=== PATIENT | male | born 1955 | race Caucasian/White ===

== ENCOUNTER 2022-12-12 09:23 | Inpatient (IN) | payer MEDICARE, MEDICAID, SELFPAY ==
--- NOTE | ~2022-12-12 | CT_ITS ---
EXAMINATION: CT HEAD WITHOUT CONTRAST CLINICAL INFORMATION: New seizure COMPARISON: None available. TECHNIQUE: Contiguous axial imaging was performed from the skull base to vertex without intravenous administration of contrast. This CT examination was performed using dose optimization techniques as appropriate, variously including the following: *Automated exposure control *Adjustment of mA and/or kV according to patient size (this includes techniques or standardized protocols for targeted exams where dose is matched to indication/reason for exam; i.e. extremities or head) *Use of iterative reconstruction technique DLP: 656 mGy-cm FINDINGS: There is no evidence of acute intracranial hemorrhage or territorial infarction. Chronic white matter small vessel ischemic changes. Cerebral atrophy with commensurate ventricular changes. No abnormal mass effect or midline shift is seen. Jenkins to white matter differentiation is well preserved. No extra-axial fluid collections are identified. There is no abnormal attenuation within the brain parenchyma. The osseous structures and soft tissues are normal. The mastoid air cells and visualized portions of the paranasal sinuses are well aerated. CT/CT head/brain wo IV con IMPRESSION: 1. No acute intracranial pathology. 2. Chronic white matter small vessel ischemic changes.
--- NOTE | ~2022-12-12 | XR_ITS ---
EXAMINATION: XR CHEST CLINICAL INFORMATION: Weakness. COMPARISON: 12/12/2022 chest radiograph. TECHNIQUE: Frontal view of the chest was obtained. FINDINGS: No significant abnormality is noted involving the heart, lungs, mediastinum, bony thorax or soft tissues. XR/XR chest 1V IMPRESSION: No acute cardiopulmonary process.
[2022-12-12 09:32] VITALS: BP 116/60; BP 121/65; PULSE 102; PULSE 90; RESP 18; TEMP 35.4; O2SAT 98; BMI 25.0
--- NOTE | 2022-12-12 09:38 | ECG_ITS ---
Test Reason : weakness Blood Pressure : / mmHG Vent. Rate : 088 BPM Atrial Rate : 088 BPM P-R Int : 130 ms QRS Dur : 074 ms QT Int : 406 ms P-R-T Axes : 000 079 056 degrees QTc Int : 491 ms Poor data quality Sinus rhythm with Premature supraventricular complexes Otherwise normal ECG No previous ECGs available Referred By: Aislinn Pires Electronically Signed By:NILO WALL MD
--- NOTE | 2022-12-12 09:40 | ED_ITS ---
HPI - Seizure General Chief Complaint: Seizure Stated Complaint: multi sz this am,post ictal @ this time,no h/o sz Source: patient and EMS Mode of arrival: EMS Limitations: altered mental status History of Present Illness HPI Narrative: 67 yo male with history of dementia, schizophrenia, DM, HTN coming from a SNF w ith concern for seizure activity. Per report from EMS nursing noted patient today to have generalized shaking, incontinence of urine x 4 episodes with AMS after this. There was no reports of injury or trauma. Patient received 4mg versed [employer] by EMS NO known history of seizures Related Data Home Medications Medication Instructions Recorded Confirmed acetaminophen 325 mg tablet 650 mg PO Q6H PRN Fever Or Pain 12/12/22 12/12/22 acetaminophen 650 mg rectal 650 mg NE Q6H PRN Fever Or Pain 12/12/22 12/12/22 suppository aspirin 81 mg chewable tablet 81 mg PO DAILY 12/12/22 12/12/22 bisacodyl 10 mg rectal suppository 10 mg NE DAILY PRN Constipation 12/12/22 12/12/22 cholecalciferol (vitamin D3) 1,250 1,250 mcg PO QMONTH 12/12/22 12/12/22 mcg (50,000 unit) capsule lisinopril 5 mg tablet 5 mg PO DAILY 12/12/22 12/12/22 magnesium hydroxide 400 mg/5 mL 30 ml PO DAILY PRN IF NO BM IN 3 12/12/22 12/12/22 oral suspension (Milk of Magnesia) DAYS melatonin 3 mg tablet 6 mg PO BEDTIME PRN Sleep 12/12/22 12/12/22 metformin 500 mg tablet,extended 500 mg PO DAILY 12/12/22 12/12/22 release 24 hr olanzapine 5 mg tablet 5 mg PO BID 12/12/22 12/12/22 quetiapine 25 mg tablet 25 mg PO BEDTIME 12/12/22 12/12/22 simethicone 80 mg chewable tablet 80 mg PO Q8H PRN Gastric Reflux 12/12/22 12/12/22 sodium phosphates 19 gram-7 118 ml NE DAILY PRN Constipation 12/12/22 12/12/22 gram/118 mL enema (Fleet Enema) Allergies Allergy/AdvReac Type Severity Reaction Status Date / Time Unable to Assess Allergy Verified 12/12/22 09:37 Review of Systems Review of Systems: Yes Unobtainable due to mental status [facility] Past Medical History Attestation statement: The following information was validated with the patient. Source: old records reviewed and nursing notes reviewed Social History Social History Advance Directives: No Physical Exam Vital Signs: Vital Signs: Last Vital Signs Temp 96.2 F L 12/12/22 12:02 Pulse 74 12/12/22 12:02 Resp 15 12/12/22 12:02 BP 120/61 12/12/22 12:02 Pulse Ox 100 12/12/22 12:02 O2 Del Method Room Air 12/12/22 12:02 BMI result Body Mass Index 25.0 Const: Limitations: altered mental status HEENT: Head: Yes normal to inspection, No Davis's sign and No raccoon eyes Ears: TM's normal bilaterally Mouth: Normal oral and palatal mucosa present Eyes: General: appearance normal, both eyes and all related structures Pupils: Equal, round and reactive pupils present Neck: Neck: Yes normal visual inspection, Yes full ROM, Yes no lymphadenopathy and Yes no meningeal signs Chest: Chest palpation & inspection: normal inspection of the chest Resp: Effort & Inspection: normal respiratory effort Cardio: Peripheral pulses: Peripheral pulses 2+ throughout GI: Inspection: Yes normal to inspection Palpation (GI): Soft to palpation and nontender Back/Spine/Pelvis: Thoracic/Lumbar Spine: thoracic and lumbar spine normal to inspection Skin: General skin exam: no rashes or lesions noted Neuro: Other: Eyes closed-opens eyes to verbal, does not follow additional commands General: no meningeal signs Cranial nerves: Yes Equal, round and reactive pupils present Extrem: General: Yes normal to inspection, Yes no pedal edema and Yes no calf tenderness Course Course Course Narrative: 1025-Elevated lactic acid. This is from seizure and not from infection. fluids infusing. Patient will be loaded with Keppra 1 g Reevaluation(s) Reevaluation #1: I reviewed the patient's labs and imaging. Patient will be admitted due to new onset of seizures. I spoke to the hospitalist who accepted the admission Medications Administered Generic Name Dose Route Start Last Admin Trade Name Freq PRN Reason Stop Dose Admin Enoxaparin Sodium 40 mg 12/12/22 14:00 12/12/22 15:31 Enoxaparin Sodium 40 Mg/0.4 Ml Syringe SUBCUT 40 mg Q24H AVA Administration Discontinued Medications Generic Name Dose Route Start Last Admin Trade Name Freq PRN Reason Stop Dose Admin Sodium Chloride 1,000 mls @ 999 mls/hr 12/12/22 09:40 12/12/22 11:58 Ns IV 12/12/22 10:40 Infused .Q1H1M STA Infusion Levetiracetam 1,000 mg in 100 mls @ 400 mls/hr 12/12/22 10:55 12/12/22 11:32 Keppra IV 12/12/22 11:09 Infused ONCE ONE Infusion Medical Decision Making Medical Decision Making MDM Narrative: 67 yo male with history of dementia, schizophrenia, HTN, DM here with concern for seizure activity seen by LTC staff. Received Versed by EMS [employer] On arrival patient rouses to verbal but follows no commands, unsure of baseline. NO seizure activity noted on arrival. Will need labs, CXR, EKG, UA, COVID screen, CT head. Patient with core temp 95.6, hr 102-will give IVF, place patient on blanket warmer. This may be from exposure and not from infection Differential Diagnosis Differential Diagnoses: The differential diagnosis associated with the presentation includes New onset seizure, intracranial hemorrhage, metabolic encephalopathy secondary to underlying infection Doubt meningitis, encephalitis as patient has no fever, no leukocytosis, no meningeal signs Admission/Observation Consideration of admission/observation: Escalation of care including admission/observation considered New onset seizure Consult Healthcare Provider Management of the patient was discussed with: Hospitalist Spoke to Dr Rodarte who accepted admission m Lab Data [facility] Lab Attestation statement: I reviewed the patient's lab results. 12/12/22 09:51 12/12/22 09:51 Labs: Lab Results 12/12/22 12/12/22 12/12/22 Range/Units 09:51 09:51 09:51 WBC 4.4 L (4.8-10.8) X10*3/uL RBC 3.85 L (4.60-5.80) X10*6/uL Hgb 12.1 L (14.0-18.0) g/dl Hct 36.5 L (42.0-52.0) % MCV 94.8 (80.0-98.0) fL MCH 31.4 (27.0-33.0) pg MCHC 33.2 (31.0-36.0) g/dl RDW 13.4 (11.0-16.0) % Plt Count 357 (160-400) X10*3/uL MPV 9.1 L (9.4-12.4) fL Immature Gran % (Auto) 0.2 (0.0-0.4) % Neut % (Auto) 57.8 (45-73) % Lymph % (Auto) 32.5 (20-40) % [place] % (Auto) 6.1 (2-11) % Eos % (Auto) 2.3 (0-4) % Baso % (Auto) 1.1 (0-2) % Lymph # (Auto) 1.4 (1.2-4.9) X10*3/uL [place] # (Auto) 0.3 (0.1-1.2) X10*3/uL Eos # (Auto) 0.1 (0.0-0.4) X10*3/uL Baso # (Auto) 0.1 (0.0-0.2) X10*3/uL Abs Immat Gran (auto) 0.01 (0.00-0.03) X10*3/uL Absolute Neuts (auto) 2.5 (2.0-8.3) x10*3/uL Absolute Nucleated RBC 0.000 (0.0-0.012) X10*3/uL Nucleated RBC % (auto) 0.0 (0.0-0.2) /100WBC PT (10.0-13.1) SEC INR (0.9-1.1) Sodium 140 (135-145) mmol/L Potassium 4.6 (3.3-5.1) mmol/L Chloride 106 (96-108) mmol/L Carbon Dioxide 24 (22-29) mmol/L Anion Gap 15 (12-20) BUN 11 (9-16) mg/dL Creatinine 0.77 (0.5-1.4) mg/dL Estim Creat Clear Calc 80.9 Estimated GFR > 60 Random Glucose 154 H (60-115) mg/dL Lactic Acid (0.5-2.0) mmol/L Calcium 9.0 (8.4-10.2) mg/dL Magnesium 1.9 (1.6-2.6) mg/dL Total Bilirubin 0.4 (0.0-1.0) mg/dL Direct Bilirubin 0.1 (0.0-0.5) mg/dL AST 17 (5-37) U/L ALT 11 (0-40) U/L Alkaline Phosphatase 70 (39-117) U/L Total Creatine Kinase 140 (38-174) U/L Troponin I High Sens (<3.5-35.0) ng/L Total Protein 7.0 (6.5-8.0) g/dL Albumin 3.7 (3.5-5.0) g/dL Urine Color Urine Appearance Urine pH (5.0-9.0) Ur Specific [place] (1.005-1.025) Urine Protein (Neg-Trace) mg/dL Urine Glucose (UA) (Negative) mg/dL Urine Ketones (Negative) mg/dL Urine Blood (Negative) Urine Nitrite (Negative) Ur Leukocyte Esterase (Negative) Urine Opiates Screen (Not Detect) Urine Fentanyl Screen (Not Detect) Ur Barbiturates Screen (Not Detect) Ur Phencyclidine Scrn (Not Detect) Ur Amphetamines Screen (Not Detect) U Benzodiazepines Scrn (Not Detect) Urine Cocaine Screen (Not Detect) U Marijuana (THC) Screen (Not Detect) Ethyl Alcohol mg/dL COVID-19 (REGINALDO) Negative (Negative) COVID-19 Clin Com See Note 12/12/22 12/12/22 12/12/22 Range/Units 09:51 09:51 09:51 WBC (4.8-10.8) X10*3/uL RBC (4.60-5.80) X10*6/uL Hgb (14.0-18.0) g/dl Hct (42.0-52.0) % MCV (80.0-98.0) fL MCH (27.0-33.0) pg MCHC (31.0-36.0) g/dl RDW (11.0-16.0) % Plt Count (160-400) X10*3/uL MPV (9.4-12.4) fL Immature Gran % (Auto) (0.0-0.4) % Neut % (Auto) (45-73) % Lymph % (Auto) (20-40) % [place] % (Auto) (2-11) % Eos % (Auto) (0-4) % Baso % (Auto) (0-2) % Lymph # (Auto) (1.2-4.9) X10*3/uL [place] # (Auto) (0.1-1.2) X10*3/uL Eos # (Auto) (0.0-0.4) X10*3/uL Baso # (Auto) (0.0-0.2) X10*3/uL Abs Immat Gran (auto) (0.00-0.03) X10*3/uL Absolute Neuts (auto) (2.0-8.3) x10*3/uL Absolute Nucleated RBC (0.0-0.012) X10*3/uL Nucleated RBC % (auto) (0.0-0.2) /100WBC PT 12.0 (10.0-13.1) SEC INR 1.0 (0.9-1.1) Sodium (135-145) mmol/L Potassium (3.3-5.1) mmol/L Chloride (96-108) mmol/L Carbon Dioxide (22-29) mmol/L Anion Gap (12-20) BUN (9-16) mg/dL Creatinine (0.5-1.4) mg/dL Estim Creat Clear Calc Estimated GFR Random Glucose (60-115) mg/dL Lactic Acid 4.2 H* (0.5-2.0) mmol/L Calcium (8.4-10.2) mg/dL Magnesium (1.6-2.6) mg/dL Total Bilirubin (0.0-1.0) mg/dL Direct Bilirubin (0.0-0.5) mg/dL AST (5-37) U/L ALT (0-40) U/L Alkaline Phosphatase (39-117) U/L Total Creatine Kinase (38-174) U/L Troponin I High Sens 3.4 (<3.5-35.0) ng/L Total Protein (6.5-8.0) g/dL Albumin (3.5-5.0) g/dL Urine Color Urine Appearance Urine pH (5.0-9.0) Ur Specific [place] (1.005-1.025) Urine Protein (Neg-Trace) mg/dL Urine Glucose (UA) (Negative) mg/dL Urine Ketones (Negative) mg/dL Urine Blood (Negative) Urine Nitrite (Negative) Ur Leukocyte Esterase (Negative) Urine Opiates Screen (Not Detect) Urine Fentanyl Screen (Not Detect) Ur Barbiturates Screen (Not Detect) Ur Phencyclidine Scrn (Not Detect) Ur Amphetamines Screen (Not Detect) U Benzodiazepines Scrn (Not Detect) Urine Cocaine Screen (Not Detect) U Marijuana (THC) Screen (Not Detect) Ethyl Alcohol mg/dL COVID-19 (REGINALDO) (Negative) COVID-19 Clin Com 12/12/22 12/12/22 12/12/22 Range/Units 09:51 11:21 11:21 WBC (4.8-10.8) X10*3/uL RBC (4.60-5.80) X10*6/uL Hgb (14.0-18.0) g/dl Hct (42.0-52.0) % MCV (80.0-98.0) fL MCH (27.0-33.0) pg MCHC (31.0-36.0) g/dl RDW (11.0-16.0) % Plt Count (160-400) X10*3/uL MPV (9.4-12.4) fL Immature Gran % (Auto) (0.0-0.4) % Neut % (Auto) (45-73) % Lymph % (Auto) (20-40) % [place] % (Auto) (2-11) % Eos % (Auto) (0-4) % Baso % (Auto) (0-2) % Lymph # (Auto) (1.2-4.9) X10*3/uL [place] # (Auto) (0.1-1.2) X10*3/uL Eos # (Auto) (0.0-0.4) X10*3/uL Baso # (Auto) (0.0-0.2) X10*3/uL Abs Immat Gran (auto) (0.00-0.03) X10*3/uL Absolute Neuts (auto) (2.0-8.3) x10*3/uL Absolute Nucleated RBC (0.0-0.012) X10*3/uL Nucleated RBC % (auto) (0.0-0.2) /100WBC PT (10.0-13.1) SEC INR (0.9-1.1) Sodium (135-145) mmol/L Potassium (3.3-5.1) mmol/L Chloride (96-108) mmol/L Carbon Dioxide (22-29) mmol/L Anion Gap (12-20) BUN (9-16) mg/dL Creatinine (0.5-1.4) mg/dL Estim Creat Clear Calc Estimated GFR Random Glucose (60-115) mg/dL Lactic Acid (0.5-2.0) mmol/L Calcium (8.4-10.2) mg/dL Magnesium (1.6-2.6) mg/dL Total Bilirubin (0.0-1.0) mg/dL Direct Bilirubin (0.0-0.5) mg/dL AST (5-37) U/L ALT (0-40) U/L Alkaline Phosphatase (39-117) U/L Total Creatine Kinase (38-174) U/L Troponin I High Sens (<3.5-35.0) ng/L Total Protein (6.5-8.0) g/dL Albumin (3.5-5.0) g/dL Urine Color Yellow Urine Appearance Clear Urine pH 6.5 (5.0-9.0) Ur Specific [place] 1.015 (1.005-1.025) Urine Protein Negative (Neg-Trace) mg/dL Urine Glucose (UA) Negative (Negative) mg/dL Urine Ketones Negative (Negative) mg/dL Urine Blood Negative (Negative) Urine Nitrite Negative (Negative) Ur Leukocyte Esterase Negative (Negative) Urine Opiates Screen Not Detected (Not Detect) Urine Fentanyl Screen Not Detected (Not Detect) Ur Barbiturates Screen Not Detected (Not Detect) Ur Phencyclidine Scrn Not Detected (Not Detect) Ur Amphetamines Screen Not Detected (Not Detect) U Benzodiazepines Scrn POSITIVE H (Not Detect) Urine Cocaine Screen Not Detected (Not Detect) U Marijuana (THC) Screen Not Detected (Not Detect) Ethyl Alcohol < 10 mg/dL COVID-19 (REGINALDO) (Negative) COVID-19 Clin Com Independent Interpretation I performed an independent interpretation of an: EKG, Plain X-Ray and CT Scan Interpretation: I independently reviewed the x-ray and CT head and agree with radiologist's report I independently reviewed the EKG which is unable to be interpreted due to artifact which is present Radiology Impression Discussion of test interpretation with radiology: I have reviewed the radiologist's reading. Radiologist Impression: [address] [address] XRay Report Signed Patient: Juan Carlos Cabrera MR#: [id number] : 1955 Acct:[id number] Age/Sex: 67 / M ADM Date: 12/12/22 Loc: .ED Attending Dr: Ordering Physician: Aislinn Valdovinos NP Date of Service: 12/12/22 Procedure(s): XR chest 1V Accession Number(s): [id number] cc: Aislinn Valdovinos NP~ EXAMINATION: XR CHEST CLINICAL INFORMATION: Weakness. COMPARISON: 12/12/2022 chest radiograph. TECHNIQUE: Frontal view of the chest was obtained. FINDINGS: No significant abnormality is noted involving the heart, lungs, mediastinum, bony thorax or soft tissues. XR/XR chest 1V IMPRESSION: No acute cardiopulmonary process. ? Launch?Image [address] [address] [address] Scan Report Signed Patient: Juan Carlos Cabrera MR#: [id number] : 1955 Acct:[id number] Age/Sex: 67 / M ADM Date: 12/12/22 Loc: .ED Attending Dr: Ordering Physician: Aislinn Valdovinos NP Date of Service: 12/12/22 Procedure(s): CT head/brain wo IV con Accession Number(s): [id number] cc: Aislinn Valdovinos NP~ EXAMINATION: CT HEAD WITHOUT CONTRAST CLINICAL INFORMATION: New seizure? COMPARISON: None available. TECHNIQUE: Contiguous axial imaging was performed from the skull base to vertex without intravenous administration of contrast. This CT examination was performed using dose optimization techniques as appropriate, variously including the following: *Automated exposure control *Adjustment of mA and/or kV according to patient size (this includes techniques or standardized protocols for targeted exams where dose is matched to indication/reason for exam; i.e. extremities or head) *Use of iterative reconstruction technique DLP: 656 mGy-cm FINDINGS: There is no evidence of acute intracranial hemorrhage or territorial infarction. Chronic white matter small vessel ischemic changes. Cerebral atrophy with commensurate ventricular changes. No abnormal mass effect or midline shift is seen. Jenkins to white matter differentiation is well preserved. No extra-axial fluid collections are identified. There is no abnormal attenuation within the brain parenchyma. The osseous structures and soft tissues are normal. The mastoid air cells and visualized portions of the paranasal sinuses are well aerated. ? CT/CT head/brain wo IV con IMPRESSION: 1.? No acute intracranial pathology. 2.? Chronic white matter small vessel ischemic changes. ? Independent Historian Clinical information obtained from an independent historian. History obtained from or confirmed by: EMS Critical Care Time Critical Care Time Critical Care Time: Yes Total Critical Care Time: 60 Attestation: Patient with hypothermia, altered mental status requiring immediate intervention with warming blankets and neurological assessment. Patient with new onset seizures requiring admission to the hospital and discussion with hospitalist Discharge Plan Discharge Clinical Impression: Epileptic seizure Patient Disposition: Admitted As Inpatient
[2022-12-12] MEDS: 0.9 % Sodium Chloride 1,000 ML 999 ML IV (10:00)
[2022-12-12 10:03] LABS: MANUAL DIFF FLAG NO
[2022-12-12 10:07] LABS: Basophils Absolute Auto 0.1 X10*3/uL (0.0-0.2); Basophils Percent Auto 1.1 % (0-2); Eosinophils Absolute Auto 0.1 X10*3/uL (0.0-0.4); Eosinophils Percent Auto 2.3 % (0-4); Hematocrit 36.5 % (42.0-52.0); Hemoglobin 12.1 g/dl (14.0-18.0); Imm Gran Abs Auto 0.01 X10*3/uL (0.00-0.03); Imm Gran Pct Auto 0.2 % (0.0-0.4); Lymphocytes Absolute Auto 1.4 X10*3/uL (1.2-4.9); Lymphocytes Percent Auto 32.5 % (20-40); Mean Corpuscular HGB Conc 33.2 g/dl (31.0-36.0); Mean Corpuscular Hemoglobin 31.4 pg (27.0-33.0); Mean Corpuscular Volume 94.8 fL (80.0-98.0); Mean Platelet Volume 9.1 fL (9.4-12.4); Monocytes Absolute Auto 0.3 X10*3/uL (0.1-1.2); Monocytes Percent Auto 6.1 % (2-11); Neutrophils Absolute Auto 2.5 x10*3/uL (2.0-8.3); Neutrophils Percent Auto 57.8 % (45-73); Platelet Count 357 X10*3/uL (160-400); Red Blood Count 3.85 X10*6/uL (4.60-5.80); Red Cell Distribution Width 13.4 % (11.0-16.0); White Blood Count 4.4 X10*3/uL (4.8-10.8)
[2022-12-12 10:22] LABS: Alanine Aminotransferase 11 U/L (0-40); Albumin Level 3.7 g/dL (3.5-5.0); Alkaline Phosphatase 70 U/L (39-117); Anion Gap 15 (12-20); Aspartate Amino Transferase 17 U/L (5-37); Bilirubin Direct 0.1 mg/dL (0.0-0.5); Bilirubin Total 0.4 mg/dL (0.0-1.0); Blood Urea Nitrogen 11 mg/dL (9-16); Carbon Dioxide 24 mmol/L (22-29); Chloride 106 mmol/L (96-108); Creatinine Clr Calc Pharmacy 80.9; Estimated Glomerular Filt Rate > 60; Ethanol < 10 mg/dL; Glucose Random 154 mg/dL (60-115); Magnesium 1.9 mg/dL (1.6-2.6); Potassium 4.6 mmol/L (3.3-5.1); Sodium 140 mmol/L (135-145)
[2022-12-12 10:26] LABS: Lactic Acid 4.2 mmol/L (0.5-2.0)
[2022-12-12 10:29] LABS: Troponin-I High Sensitivity 3.4 ng/L (<3.5-35.0)
[2022-12-12 10:34] LABS: COVID-19 Test Negative (Negative); IDNOW Serial# BCCEAD1C
--- NOTE | 2022-12-12 11:02 | PHA.MEDREC ---
Pharmacy Consult ? [facility]
[2022-12-12] MEDS: levETIRAcetam in NaCl (iso-os) 1,000 MG/100 ML PIGGYBACK 400 MG IV (11:15)
[2022-12-12 11:35] LABS: Appearance Urine Clear; Color Urine Yellow; Glucose Urine UA Negative (Negative); Leukocyte Esterase Urine Negative (Negative); Nitrite Urine Negative (Negative); PH 6.5 (5.0-9.0); Specific Gravity - Urine 1.015 (1.005-1.025); Urine Blood Negative (Negative); Urine Ketones Negative (Negative); Urine Protein Negative (Neg-Trace)
[2022-12-12 11:40] LABS: Amphetamine Screen Urine Not Detected (Not Detect); Barbiturates, Urine Not Detected (Not Detect); Benzodiazepines Screen Urine POSITIVE (Not Detect); Cannabinoid Screen Urine Not Detected (Not Detect); Cocaine Screen Urine Not Detected (Not Detect); Fentanyl, urine Not Detected (Not Detect); Opiate Screen Urine Not Detected (Not Detect); Phencyclidine Screen Urine Not Detected (Not Detect)
[2022-12-12 12:01] LABS: Reflex Lactate? Lactic Acid Added
[2022-12-12 12:02] VITALS: BP 120/61; PULSE 74; RESP 15; TEMP 35.7; O2SAT 100
--- NOTE | 2022-12-12 12:37 | P.HPHOSP_ITS ---
History of Present Illness Date of Service: 12/12/22 Attending physician on admission: [facility] Chief Complaint: New onset seizure Pt is a 67-year-old male with a PMH significant for?unspecified dementia, schizophrenia, HTN, olz-qquweub-gtgcxsvce diabetes type 2, and BPH who presents to the ED from SNF for evaluation of new onset seizure. Patient is a resident of [facility]. Patient was being attended to by a LOAF COUNTER when he started shaking, became unresponsive, and was incontinent of urine. LOAF COUNTER lowered him to the floor and noted him to be altered when he awoke. Patient does not have a known history of seizures. Has baseline dementia but ambulates on his own and capable of following basic commands at baseline. Patient received 4 mg Versed by EMS. In the ED patient was hypothermic at 95.8 and tachypnic up to 102. Patient was placed in a warming blanket and given IVF. Labs were significant for WBC 4.4, H&H 12.1/36.5, lactic acid 4.2. Electrolytes normal. Renal function baseline. Hepatic function baseline. UA negative for UTI. CXR negative. CT of head negative for acute intracranial pathology but showed chronic white matter small- vessel ischemic changes. EKG demonstrated sinus rhythm with PVCs and no evidence of ST elevations or depressions. Pt was treated with IVF and loaded with Keppra. Pt will be admitted to the hospital under observation on telemetry for further evaluation and treatment of new onset seizure. Review of Systems Review of Systems: Not able to obtain due to patient's mentation PMFSH Social History Advance Directives: No Meds Allergies Allergy/AdvReac Type Severity Reaction Status Date / Time Unable to Assess Allergy Verified 12/12/22 09:37 Active Medications: Current Medications Pharmacy Consult (Consult Rx Perform Med Rec) 1 each MISCELLANE ONCE PRN PRN Reason: Consult order Home Medications Medication Instructions Recorded Confirmed Last Taken Type acetaminophen 325 mg tablet 650 mg PO Q6H PRN Fever Or Pain 12/12/22 12/12/22 Unknown History acetaminophen 650 mg rectal 650 mg MS Q6H PRN Fever Or Pain 12/12/22 12/12/22 Unknown History suppository aspirin 81 mg chewable tablet 81 mg PO DAILY 12/12/22 12/12/22 Unknown History bisacodyl 10 mg rectal suppository 10 mg MS DAILY PRN Constipation 12/12/22 12/12/22 Unknown History cholecalciferol (vitamin D3) 1,250 1,250 mcg PO QMONTH 12/12/22 12/12/22 11/27/22 History mcg (50,000 unit) capsule lisinopril 5 mg tablet 5 mg PO DAILY 12/12/22 12/12/22 Unknown History magnesium hydroxide 400 mg/5 mL 30 ml PO DAILY PRN IF NO BM IN 3 12/12/22 12/12/22 Unknown History oral suspension (Milk of Magnesia) DAYS melatonin 3 mg tablet 6 mg PO BEDTIME PRN Sleep 12/12/22 12/12/22 Unknown History metformin 500 mg tablet,extended 500 mg PO DAILY 12/12/22 12/12/22 Unknown History release 24 hr olanzapine 5 mg tablet 5 mg PO BID 12/12/22 12/12/22 Unknown History quetiapine 25 mg tablet 25 mg PO BEDTIME 12/12/22 12/12/22 Unknown History simethicone 80 mg chewable tablet 80 mg PO Q8H PRN Gastric Reflux 12/12/22 12/12/22 Unknown History sodium phosphates 19 gram-7 118 ml MS DAILY PRN Constipation 12/12/22 12/12/22 Unknown History gram/118 mL enema (Fleet Enema) Physical Exam Vital Signs and Narrative: Vital Signs: Last Vital Signs Temp 96.2 F L 12/12/22 12:02 Pulse 74 12/12/22 12:02 Resp 15 12/12/22 12:02 BP 120/61 12/12/22 12:02 Pulse Ox 100 12/12/22 12:02 O2 Del Method Room Air 12/12/22 12:02 BMI result Body Mass Index 25.0 Constitutional: Somnolent, arousable to verbal stimuli, in no acute distress. Mental Status: Confused, not oriented to person, place, time, or situation. Not responding to commands or answering questions appropriately Eyes: Pupils are equal, round, and reactive to light. Ear, Nose, and Throat: Oropharynx clear, mucous membranes moist. Ears and nose without deformities. Trachea midline. Respiratory: Clear to auscultation bilaterally. No wheezing, rales, or rhonchi. Cardiovascular: S1, S2 regular. No murmurs, rubs, or gallops. Gastrointestinal: Abdomen soft, non-tender, non-distended. Normal bowel sounds. Neurologic: Patient not following commands. Moves all extremities spontaneously. Skin: No rashes or lesions noted. Musculoskeletal: No cyanosis or clubbing. Extremities: No edema. Results Labs 12/12/22 09:51 12/12/22 09:51 Labs: Laboratory Results - last 24 hr 12/12/22 12/12/22 12/12/22 09:51 09:51 09:51 MCV 94.8 MCH 31.4 MCHC 33.2 RDW 13.4 Plt Count 357 MPV 9.1 L Immature Gran % (Auto) 0.2 Neut % (Auto) 57.8 Lymph % (Auto) 32.5 [place] % (Auto) 6.1 Eos % (Auto) 2.3 Baso % (Auto) 1.1 Lymph # (Auto) 1.4 [place] # (Auto) 0.3 Eos # (Auto) 0.1 Baso # (Auto) 0.1 Abs Immat Gran (auto) 0.01 Absolute Neuts (auto) 2.5 Absolute Nucleated RBC 0.000 Nucleated RBC % (auto) 0.0 PT INR Anion Gap 15 Estim Creat Clear Calc 80.9 Estimated GFR > 60 Random Glucose 154 H Lactic Acid Calcium 9.0 Magnesium 1.9 Total Bilirubin 0.4 Direct Bilirubin 0.1 AST 17 ALT 11 Alkaline Phosphatase 70 Total Creatine Kinase 140 Troponin I High Sens Total Protein 7.0 Albumin 3.7 Urine Color Urine Appearance Urine pH Ur Specific [place] Urine Protein Urine Glucose (UA) Urine Ketones Urine Blood Urine Nitrite Ur Leukocyte Esterase Urine Opiates Screen Urine Fentanyl Screen Ur Barbiturates Screen Ur Phencyclidine Scrn Ur Amphetamines Screen U Benzodiazepines Scrn Urine Cocaine Screen U Marijuana (THC) Screen Ethyl Alcohol COVID-19 (REGINALDO) Negative COVID-19 Clin Com See Note 12/12/22 12/12/22 12/12/22 09:51 09:51 09:51 MCV MCH MCHC RDW Plt Count MPV Immature Gran % (Auto) Neut % (Auto) Lymph % (Auto) [place] % (Auto) Eos % (Auto) Baso % (Auto) Lymph # (Auto) [place] # (Auto) Eos # (Auto) Baso # (Auto) Abs Immat Gran (auto) Absolute Neuts (auto) Absolute Nucleated RBC Nucleated RBC % (auto) PT 12.0 INR 1.0 Anion Gap Estim Creat Clear Calc Estimated GFR Random Glucose Lactic Acid 4.2 H* Calcium Magnesium Total Bilirubin Direct Bilirubin AST ALT Alkaline Phosphatase Total Creatine Kinase Troponin I High Sens 3.4 Total Protein Albumin Urine Color Urine Appearance Urine pH Ur Specific [place] Urine Protein Urine Glucose (UA) Urine Ketones Urine Blood Urine Nitrite Ur Leukocyte Esterase Urine Opiates Screen Urine Fentanyl Screen Ur Barbiturates Screen Ur Phencyclidine Scrn Ur Amphetamines Screen U Benzodiazepines Scrn Urine Cocaine Screen U Marijuana (THC) Screen Ethyl Alcohol COVID-19 (REGINALDO) COVID-19 Clin Com 12/12/22 12/12/22 12/12/22 09:51 11:21 11:21 MCV MCH MCHC RDW Plt Count MPV Immature Gran % (Auto) Neut % (Auto) Lymph % (Auto) [place] % (Auto) Eos % (Auto) Baso % (Auto) Lymph # (Auto) [place] # (Auto) Eos # (Auto) Baso # (Auto) Abs Immat Gran (auto) Absolute Neuts (auto) Absolute Nucleated RBC Nucleated RBC % (auto) PT INR Anion Gap Estim Creat Clear Calc Estimated GFR Random Glucose Lactic Acid Calcium Magnesium Total Bilirubin Direct Bilirubin AST ALT Alkaline Phosphatase Total Creatine Kinase Troponin I High Sens Total Protein Albumin Urine Color Yellow Urine Appearance Clear Urine pH 6.5 Ur Specific [place] 1.015 Urine Protein Negative Urine Glucose (UA) Negative Urine Ketones Negative Urine Blood Negative Urine Nitrite Negative Ur Leukocyte Esterase Negative Urine Opiates Screen Not Detected Urine Fentanyl Screen Not Detected Ur Barbiturates Screen Not Detected Ur Phencyclidine Scrn Not Detected Ur Amphetamines Screen Not Detected U Benzodiazepines Scrn POSITIVE H Urine Cocaine Screen Not Detected U Marijuana (THC) Screen Not Detected Ethyl Alcohol < 10 COVID-19 (REGINALDO) COVID-19 Clin Com Imaging Radiologist's Impressions: Impressions Chest X-Ray 12/12/22 11:09 IMPRESSION: No acute cardiopulmonary process. Head CT 12/12/22 11:16 IMPRESSION: 1. No acute intracranial pathology. 2. Chronic white matter small vessel ischemic changes. Assessment and Plan (1) Epileptic seizure: Status: Acute Plan Pt is a 67-year-old male with a PMH significant for?unspecified dementia, schizophrenia, HTN, tuf-tdwmtsy-[id number] diabetes type 2, and BPH who presents to the ED from SNF for evaluation of new onset seizure. Pt will be admitted to the hospital under observation on telemetry for further evaluation and treatment of new onset seizure. New onset seizure Etiology unclear: No history of seizures, lytes normal, random glucose 154, CT negative for acute intracranial pathology Patient loaded with 1000 mg of Keppra in the ED Will start Keppra 500mg bid We will get EEG Aspiration precautions Seizure precautions Neurology consult Admit to observation Monitor on telemetry Lactic acidosis Patient with lactic acid of 4.2 upon presentation Likely secondary from seizure activity, not sepsis The patient given IVF in ED Check repeat lactic acid Hypothermia Patient temperature 95.8 degrees at time of presentation Patient placed in a Janet Hugger, continuing until normothermic Pht-besorzp-mtkyujurt diabetes type 2 Hold metformin SSI HTN Well controlled, continue home meds Mood disorder Continue home meds Full Code Attending:?Dr. Dodge DVT Prophylaxis: Lovenox Pt will be admitted to the hospital under observation on telemetry for further evaluation and treatment of new onset seizure. Time Spent With Patient Time: Total time managing care of this patient today ____ minutes. Quality Stroke Does the patient have a stroke diagnosis?: No VTE Prior VTE?: No VTE Risk Level:: Medical - moderate - high VTE Device Contraindication: Treatment Not Indicated VTE Drug Contraindication: N/A - Med Ordered
--- NOTE | 2022-12-12 13:49 | PC.NURSE ---
Multiple staff attempts to retrieve second lactic acid order. Third tech able to just obtain at 1350
[2022-12-12 14:07] LABS: ~Lactic Acid-LAB USE ONLY 0.8 mmol/L (0.5-2.0)
[2022-12-12] MEDS: Enoxaparin Sodium 40 MG/0.4 ML SYRINGE SUBCUT (15:31)
[2022-12-12 16:37] VITALS: BP 109/57; PULSE 73; RESP 16; TEMP 36.4; O2SAT 98
[2022-12-12 18:31] LABS: Glucose, Whole Blood 95 mg/dL (60-115)
[2022-12-12 20:32] VITALS: BP 136/65; PULSE 78; RESP 15; TEMP 35.9; O2SAT 96
--- NOTE | 2022-12-12 20:33 | MHC.EDTECH ---
2000 ROUNDING AND VITALS SIGN TAKEN ,DARA JACOB IS AWARE OF PATIENT LOW TEMP OF 96.7 ,PATIENT WAS HOOKED UP TO BEAR HUGER WARMING BLANKET PER DARA JACOB REQUEST .
--- NOTE | 2022-12-12 20:39 | MHC.EDTECH ---
PATIENT WAS INCONTINENT OF URINE AND SMALL AMOUNT OF SOFT BOWEL MOVEMENT ,CARE GIVEN .
[2022-12-12] MEDS: levETIRAcetam in NaCl (iso-os) 500 MG/100 ML PIGGYBACK 400 MG IV (20:42)
[2022-12-12] MEDS: OLANZapine 5 MG TABLET PO (20:43)
[2022-12-12] MEDS: 0.9 % Sodium Chloride Flush 3 ML SYRINGE IVFLUSH (20:43)
[2022-12-12] MEDS: QUEtiapine Fumarate 25 MG TABLET PO (20:43)
[2022-12-12 21:25] LABS: Glucose, Whole Blood 100 mg/dL (60-115)
[2022-12-13] VITALS (7 sets, daily range): BP systolic 93–134; BP diastolic 39–75; PULSE 54–122; RESP 12–22; TEMP 36–36.8; O2SAT 94–100; BMI 19.6
--- NOTE | 2022-12-13 00:01 | PC.NURSE ---
Pt resting/sleeping at the bedside in no apparent distress. Breaths are even regular and unlabored with equal chest rises. NSR on monitor with HR 71. Seizure precautions in place. Passed nursing swallow screen with no complications. Able to tolerate PO meds as prescribed. Pending bed assignment. Will continue to monitor.
[2022-12-13] MEDS: 0.9 % Sodium Chloride Flush 3 ML SYRINGE IVFLUSH ×3 (00:03→15:20)
--- NOTE | 2022-12-13 02:32 | MHC.EDTECH ---
PATIENT WAS INCONTINENT OF URINE ,CARE GIVEN ,BEDDING CHANGE .
[2022-12-13 07:11] LABS: Glucose, Whole Blood 89 mg/dL (60-115)
--- NOTE | 2022-12-13 07:43 | MHC.EDTECH ---
POC completed and reported to RN. Bed in low, locked position. Call cueva in reach, able to make needs known.
--- NOTE | 2022-12-13 09:12 | MHC.CM.PN ---
CM spoke with Patient's Guardian/Atul @ [phone] and addressed NGUYỄN with her, original will be mailed to Atul and a copy will be placed on the chart. Patient is a LTC, [facility] bed hold, Resident of [facility] and returning there is the goal. DOUG has initiated and will follow for dc planning.
--- NOTE | 2022-12-13 09:34 | MHC.EDTECH ---
Incontinence care completed on pt. New anastasiya pads placed. Pt repositioned for comfort.
--- NOTE | 2022-12-13 09:42 | PC.NURSE ---
pt is alert, asleeep, easily arousable. npo until swallow eval.
[2022-12-13] MEDS: levETIRAcetam in NaCl (iso-os) 500 MG/100 ML PIGGYBACK 400 MG IV ×2 (09:43→21:29)
--- NOTE | 2022-12-13 10:11 | PC.NURSE ---
rn to rn given to brooke. pt aware of plan of care for transfer to [facility].
--- NOTE | 2022-12-13 10:50 | MHC.CM.PN ---
Patient has been switched from OBSERVATION to INPATIENT and IMM has been addressed with Guardian (original will be mailed to Guardian and a copy has been placed on the chart).
[2022-12-13] MEDS: OLANZapine 5 MG TABLET PO ×2 (10:54→21:30)
[2022-12-13] MEDS: Aspirin 81 MG TAB.CHEW PO (10:54)
[2022-12-13 11:29] LABS: Glucose, Whole Blood 90 mg/dL (60-115)
--- NOTE | 2022-12-13 11:41 | P.CNNE_ITS ---
History of Present Illness Data of Consult Service Date: 12/13/22 Primary Care Provider: RAKESH COLLINS [facility] Reason for consult: Seizure disorder 67 years old man with underlying history of psychotic psychiatric disorder and dementia brought to hospital with new onset of generalized seizure disorder. He was noted to have generalized convulsion with urinary incontinence. He was unable to provide any meaningful history. First I saw him yesterday in emergency room when he was 2 drowsy and I could not get proper history. Today he was more alert and awake but still did not know what had happened. He did not know where he was Review of Systems Review of Systems: No recent cold or flu-like illness PMFSH Social History Social History Household Members: Unknown / Unable to assess Housing: Prison Housing Other:: [facility] Unable to assess alcohol history related to: Unknown Patient Tobacco Use Status: Tobacco use Unknown Use of substances other than those prescribed or required for medical reasons: Unknown Currently Displaying Signs/Symptoms of Drug Intoxication Withdrawal: No Any prior treatment program specific to substance use: No Advance Directives: No Advance Directives Information Provided: No (Medical Condition) Do you have thoughts of harming others: None Do you have a plan to hurt others: No Plan Recently lost weight without trying: Unsure Nutrition Risks: On aspiration precautions service: No Current occupational status: disabled Meds Allergies Allergy/AdvReac Type Severity Reaction Status Date / Time Unable to Assess Allergy Verified 12/12/22 09:37 Active Medications: Current Medications Acetaminophen (Acetaminophen 325 Mg Tablet) 650 mg PO Q6H PRN PRN Reason: Pain, Mild (Pain Scale 1-3) Acetaminophen (Acetaminophen Supp 650 Mg Supp.Rect) 650 mg TN Q6H PRN PRN Reason: Fever Or Pain Aspirin (Aspirin 81 Mg Tab.Chew) 81 mg PO DAILY ON LICENSE OF [facility] Last Admin: 12/13/22 10:54 Dose: 81 mg Bisacodyl (Bisacodyl 10 Mg Supp.Rect) 10 mg TN DAILY PRN PRN Reason: Constipation Docusate Sodium (Docusate Sodium 100 Mg Capsule) 100 mg PO DAILY PRN PRN Reason: Constipation Enoxaparin Sodium (Enoxaparin Sodium 40 Mg/0.4 Ml Syringe) 40 mg SUBCUT Q24H ON LICENSE OF [facility] Last Admin: 12/12/22 15:31 Dose: 40 mg Glucose (Glucose Gel 15 Gm Gel..Gram.) 15 gm PO Q15M PRN; Protocol PRN Reason: per Hypoglycemia Standing Ord. Levetiracetam (Keppra) 500 mg in 100 mls @ 400 mls/hr IV BID ON LICENSE OF [facility] Last Infusion: 12/13/22 10:12 Dose: Infused Dextrose (D10) 250 mls @ 750 mls/hr IV Q15M PRN; Protocol PRN Reason: per Hypoglycemia Standing Ord. Insulin Human Lispro (Insulin Lispro 100 Unit/Ml 3 Ml Vial) 0 unit SUBCUT QIDACHS ON LICENSE OF [facility]; Protocol Last Admin: 12/13/22 11:31 Dose: Not Given Lisinopril (Lisinopril 5 Mg Tablet) 5 mg PO DAILY ON LICENSE OF [facility]; Protocol Last Admin: 12/13/22 10:50 Dose: Not Given Melatonin (Melatonin 3 Mg Tablet) 6 mg PO BEDTIME PRN PRN Reason: Sleep Olanzapine (Olanzapine 5 Mg Tablet) 5 mg PO BID ON LICENSE OF [facility] Last Admin: 12/13/22 10:54 Dose: 5 mg Ondansetron HCl (Ondansetron Hcl 4 Mg/2 Ml Vial) 4 mg IVPUSH Q8H PRN PRN Reason: Nausea and Vomiting Pharmacy Consult (Consult Rx Perform Med Rec) 1 each MISCELLANE ONCE PRN PRN Reason: Consult order Quetiapine Fumarate (Quetiapine Fumarate 25 Mg Tablet) 25 mg PO BEDTIME ON LICENSE OF [facility] Last Admin: 12/12/22 20:43 Dose: 25 mg Simethicone (Simethicone 80 Mg Tab.Chew) 80 mg PO Q8H PRN PRN Reason: Gastric Reflux Sodium Biphosphate/Sodium Phosphate (Sodium Phosphate,Pratt-Dibasic 133 Ml Enema) 133 ml TN DAILY PRN PRN Reason: Constipation Sodium Chloride (0.9 % Sodium Chloride Flush 3 Ml Syringe) [facility] Last Admin: 12/13/22 09:44 Dose: 3 ml Home Medications Medication Instructions Recorded Confirmed Last Taken Type acetaminophen 325 mg tablet 650 mg PO Q6H PRN Fever Or Pain 12/12/22 12/12/22 Un known History acetaminophen 650 mg rectal 650 mg TN Q6H PRN Fever Or Pain 12/12/22 12/12/22 Unknown History suppository aspirin 81 mg chewable tablet 81 mg PO DAILY 12/12/22 12/12/22 Unknown History bisacodyl 10 mg rectal suppository 10 mg TN DAILY PRN Constipation 12/12/22 12/12/22 Unknown History cholecalciferol (vitamin D3) 1,250 1,250 mcg PO QMONTH 12/12/22 12/12/22 11/27/22 History mcg (50,000 unit) capsule lisinopril 5 mg tablet 5 mg PO DAILY 12/12/22 12/12/22 Unknown History magnesium hydroxide 400 mg/5 mL 30 ml PO DAILY PRN IF NO BM IN 3 12/12/22 12/12/22 Unknown History oral suspension (Milk of Magnesia) DAYS melatonin 3 mg tablet 6 mg PO BEDTIME PRN Sleep 12/12/22 12/12/22 Unknown History metformin 500 mg tablet,extended 500 mg PO DAILY 12/12/22 12/12/22 Unknown History release 24 hr olanzapine 5 mg tablet 5 mg PO BID 12/12/22 12/12/22 Unknown History quetiapine 25 mg tablet 25 mg PO BEDTIME 12/12/22 12/12/22 Unknown History simethicone 80 mg chewable tablet 80 mg PO Q8H PRN Gastric Reflux 12/12/22 12/12/22 Unknown History sodium phosphates 19 gram-7 118 ml TN DAILY PRN Constipation 12/12/22 12/12/22 Unknown History gram/118 mL enema (Fleet Enema) Physical Exam Vital Signs: Vital Signs: Last Vital Signs Temp 97.8 F 12/13/22 10:35 Pulse 65 12/13/22 10:35 Resp 19 12/13/22 10:35 BP 109/75 12/13/22 10:35 Pulse Ox 98 12/13/22 10:35 O2 Del Method Room Air 12/13/22 10:35 BMI result Body Mass Index 19.6 Neuro: Other: He is alert and awake with normal spontaneity of speech fluency comprehension and flat affect. Face revealed mild left-sided weakness. Visual shelton are full. Comprehension is intact. He is following commands. There is generalize muscle atrophy areflexia and flexor plantars. Results Labs 12/12/22 09:51 12/12/22 09:51 Labs: Moderate to severe diffuse cerebral and cerebellar atrophy is noted on CT scan of brain Assessment and Plan (1) Epileptic seizure: Status: Acute 67 years old man with underlying degenerative dementia and psychotic disorder came with generalize seizure. Generalized seizure in this type of setting were not uncommon. My recommendation is to add valproic acid or Depakote 500 mg twice a day. Usually prescribed Keppra might not be the best choice with his psychiatric history. Time Spent With Patient Time: Total time managing care of this patient today ____ minutes. Procedures Date of Service Date of Service: 12/13/22
[2022-12-13] MEDS: Enoxaparin Sodium 40 MG/0.4 ML SYRINGE SUBCUT (15:19)
[2022-12-13 16:04] LABS: Glucose, Whole Blood 86 mg/dL (60-115)
--- NOTE | 2022-12-13 16:25 | P.PNIM_ITS ---
Subjective Subjective Date of Service: 12/13/22 Interval History: No acute issues overnight Review of Systems Unable to obtain Physical Exam Vital Signs: Vital Signs: Last Vital Signs Temp 97.5 F 12/13/22 15:19 Pulse 72 12/13/22 15:19 Resp 17 12/13/22 15:19 BP 112/58 L 12/13/22 15:19 Pulse Ox 100 12/13/22 15:19 O2 Del Method Room Air 12/13/22 15:19 BMI result Body Mass Index 19.6 Const: Other: Awake alert no acute distress Resp: Other: Clear to auscultation bilaterally no rales rhonchi or wheezes Cardio: Other: No S4; positive S1-S2; no S3 murmurs rubs or gallops GI: Other: Soft nontender nondistended normoactive bowel sounds Extrem: Other: No edema bilaterally Objective Data Active Medications Acetaminophen (Acetaminophen 325 Mg Tablet) 650 mg PO Q6H PRN PRN Reason: Pain, Mild (Pain Scale 1-3) Acetaminophen (Acetaminophen Supp 650 Mg Supp.Rect) 650 mg CA Q6H PRN PRN Reason: Fever Or Pain Aspirin (Aspirin 81 Mg Tab.Chew) 81 mg PO DAILY [facility] Last Admin: 12/13/22 10:54 Dose: 81 mg Documented By: LINDA Bisacodyl (Bisacodyl 10 Mg Supp.Rect) 10 mg [place] DAILY PRN PRN Reason: Constipation Docusate Sodium (Docusate Sodium 100 Mg Capsule) 100 mg PO DAILY PRN PRN Reason: Constipation Enoxaparin Sodium (Enoxaparin Sodium 40 Mg/0.4 Ml Syringe) 40 mg SUBCUT Q24H [facility] Last Admin: 12/13/22 15:19 Dose: 40 mg Documented By: LINDA Glucose (Glucose Gel 15 Gm Gel..Gram.) 15 gm PO Q15M PRN; Protocol PRN Reason: per Hypoglycemia Standing Ord. Levetiracetam (Keppra) 500 mg in 100 mls @ 400 mls/hr IV BID [facility] Last Infusion: 12/13/22 10:12 Dose: 0 mls/hr Documented By: ANTONIA Dextrose (D10) 250 mls @ 750 mls/hr IV Q15M PRN; Protocol PRN Reason: per Hypoglycemia Standing Ord. Insulin Human Lispro (Insulin Lispro 100 Unit/Ml 3 Ml Vial) 0 unit SUBCUT QIDACHS [facility]; Protocol Last Admin: 12/13/22 16:12 Dose: Not Given Documented By: LINDA Non-Admin Reason: No Insulin Coverage Lisinopril (Lisinopril 5 Mg Tablet) 5 mg PO DAILY [facility]; Protocol Last Admin: 12/13/22 10:50 Dose: Not Given Documented By: LINDA Non-Admin Reason: Decreased Blood Pressure Melatonin (Melatonin 3 Mg Tablet) 6 mg PO BEDTIME PRN PRN Reason: Sleep Olanzapine (Olanzapine 5 Mg Tablet) 5 mg PO BID [facility] Last Admin: 12/13/22 10:54 Dose: 5 mg Documented By: LINDA Ondansetron HCl (Ondansetron Hcl 4 Mg/2 Ml Vial) 4 mg IVPUSH Q8H PRN PRN Reason: Nausea and Vomiting Pharmacy Consult (Consult Rx Perform Med Rec) 1 each MISCELLANE ONCE PRN PRN Reason: Consult order Quetiapine Fumarate (Quetiapine Fumarate 25 Mg Tablet) 25 mg PO BEDTIME [facility] Last Admin: 12/12/22 20:43 Dose: 25 mg Documented By: BETTY Simethicone (Simethicone 80 Mg Tab.Chew) 80 mg PO Q8H PRN PRN Reason: Gastric Reflux Sodium Biphosphate/Sodium Phosphate (Sodium Phosphate,[place]-Dibasic 133 Ml Enema) 133 ml [place] DAILY PRN PRN Reason: Constipation Sodium Chloride (0.9 % Sodium Chloride Flush 3 Ml Syringe) 3 ml IVFLUSH QSHIFT [facility] Last Admin: 12/13/22 15:20 Dose: 3 ml Documented By: LINDA Labs 12/12/22 09:51 12/12/22 09:51 Labs: Laboratory Results - last 24 hr 12/12/22 12/12/22 12/13/22 16:39 20:38 07:01 POC Glucose 95 100 89 12/13/22 12/13/22 11:20 16:00 POC Glucose 90 86 Microbiology Microbiology Results: Microbiology 12/12/22 11:21 Blood Culture - Preliminary Blood - Venous No growth after 24 hours. 12/12/22 09:57 Blood Culture - Preliminary Blood - Venous No growth after 24 hours. Assessment and Plan (1) New onset seizure: Status: Acute (2) Diabetes type 2, controlled: Status: Acute (3) Hypertension: Status: Acute Plan Pt is a 67-year-old male with a PMH significant for?unspecified dementia, schizophrenia, HTN, [id number] diabetes type 2, and BPH who presents to the ED from SNF for evaluation of new onset seizure. Pt will be admitted to the hospital under observation on telemetry for further evaluation and treatment of new onset seizure. 1.New onset seizure -as per Neurology; add Depakote 500 q.12 hours -seizure precautions 2.Hypothermia -normalthermic -follow clinically 3.DMII -acceptable control off metformin -adjust as indicated -lispro correctional scale 4.HTN -acceptable control on current therapies -adjust as clinically indicated Full Code Lovenox Requires ongoing hospitalization to complete workup for new onset seizures Time Spent With Patient Time: Total time managing care of this patient today ____ minutes. Quality Stroke Does the patient have a stroke diagnosis?: No VTE Prior VTE?: No VTE Risk Level:: Medical - moderate - high VTE Device Contraindication: Treatment Not Indicated VTE Drug Contraindication: N/A - Med Ordered
[2022-12-13 19:16] LABS: Glucose, Whole Blood 130 mg/dL (60-115)
[2022-12-13] MEDS: Divalproex Sodium 500 MG TABLET.DR PO (21:30)
[2022-12-13] MEDS: QUEtiapine Fumarate 25 MG TABLET PO (21:30)
[2022-12-14] VITALS: BP 114/60; PULSE 67; RESP 15; TEMP 36.6; O2SAT 98
--- NOTE | 2022-12-14 | EEG_ITS ---
This is a 16 channel EEG with an EKG lead. The patient is reported awake and confused during the tracing. Background EEG rhythm is low amplitude, mixed theta, beta with no obvious asymmetry or paroxysmal tendency. Photic stimulation does not produce any significant abnormality. Hyperventilation is not performed. Cardiac lead does not reveal any significant abnormality. No sharp wave spikes or paroxysmal tendencies noted. IMPRESSION: Mild slowing with no evidence of seizure disorder. MD WOOD Lee/LUCAS / [id number]
[2022-12-14] MEDS: vancomycin HCL 1,250 MG in 0.9 % Sodium Chloride 250 ML 166.67 MG IV (01:31)
[2022-12-14] MEDS: 0.9 % Sodium Chloride Flush 3 ML SYRINGE IVFLUSH ×2 (01:39→09:24)
[2022-12-14 03:49] VITALS: BP 101/53; PULSE 62; RESP 15; TEMP 36.3; O2SAT 100
[2022-12-14 07:03] LABS: MANUAL DIFF FLAG NO
[2022-12-14 07:05] VITALS: BP 133/80; PULSE 66; RESP 20; TEMP 36.4; O2SAT 98
[2022-12-14 07:08] LABS: Basophils Absolute Auto 0.1 X10*3/uL (0.0-0.2); Basophils Percent Auto 1.1 % (0-2); Eosinophils Absolute Auto 0.1 X10*3/uL (0.0-0.4); Eosinophils Percent Auto 1.5 % (0-4); Hemoglobin 11.8 g/dl (14.0-18.0); Imm Gran Abs Auto 0.01 X10*3/uL (0.00-0.03); Imm Gran Pct Auto 0.2 % (0.0-0.4); Lymphocytes Absolute Auto 2.1 X10*3/uL (1.2-4.9); Lymphocytes Percent Auto 38.2 % (20-40); Mean Corpuscular HGB Conc 32.8 g/dl (31.0-36.0); Mean Corpuscular Hemoglobin 31.7 pg (27.0-33.0); Mean Corpuscular Volume 96.8 fL (80.0-98.0); Mean Platelet Volume 9.5 fL (9.4-12.4); Monocytes Absolute Auto 0.5 X10*3/uL (0.1-1.2); Monocytes Percent Auto 9.7 % (2-11); Neutrophils Absolute Auto 2.7 x10*3/uL (2.0-8.3); Neutrophils Percent Auto 49.3 % (45-73); Platelet Count 355 X10*3/uL (160-400); Red Blood Count 3.72 X10*6/uL (4.60-5.80); Red Cell Distribution Width 13.3 % (11.0-16.0); White Blood Count 5.5 X10*3/uL (4.8-10.8)
--- NOTE | 2022-12-14 07:27 | PHA.PROG ---
Admission Date/Time: December 13, 2022 10:45 Indication: Bacteremia Weight in k.4 kg Adjusted body weight in K.26 kg [place] body weight in K.5 kg Obesity Dosing Indication % IBW: N/A Serum Creatinine - Last 168 Hours 12/12/22 09:51 Creatinine 0.77 Estimated CrCl and GFR - Last 168 Hours 12/12/22 09:51 Estim Creat Clear Calc 80.9 Estimated GFR > 60 Vancomycin Loading Dose: 1250 mg Current Vancomycin Dosing Regimen: 750 mg Q12H Date and Time for next Vancomycin Level to be drawn: 12/15 @ 1200 Pharmacist Comments on Vancomycin Plan: Patient received an adequate load dose on 12/14 @ 0131. Maintenance dose vanco 750 mg Q12H is scheduled to start 12/14 @ 1400. Expected AUC 505 with a trough of 15.9 Level is schedule to be drawn prior to 4th dose Pharmacy will monitor renal function daily Lorelei Murray PharmD Vancomycin dosing will take advantage of Exit41 as a clinical decision support tool that uses Bayesian modeling to calculate individual patient's pharmacokinetic parameters and forecast the patient's drug concentration time course with the target goal AUC 24 range of 400 - 600 mg/L/hr.
[2022-12-14 07:40] LABS: Alanine Aminotransferase 9 U/L (0-40); Albumin Level 3.2 g/dL (3.5-5.0); Alkaline Phosphatase 62 U/L (39-117); Anion Gap 12 (12-20); Aspartate Amino Transferase 16 U/L (5-37); Bilirubin Total 0.3 mg/dL (0.0-1.0); Blood Urea Nitrogen 11 mg/dL (9-16); Calcium 8.7 mg/dL (8.4-10.2); Carbon Dioxide 24 mmol/L (22-29); Chloride 108 mmol/L (96-108); Creatinine Clr Calc Pharmacy 77.3; Estimated Glomerular Filt Rate > 60; Glucose Fasting 70 mg/dL (60-99); Potassium 4.6 mmol/L (3.3-5.1); Sodium 139 mmol/L (135-145); Total Protein 6.3 g/dL (6.5-8.0)
[2022-12-14 07:47] LABS: Glucose, Whole Blood 73 mg/dL (60-115)
[2022-12-14 07:51] LABS: Glucose, Whole Blood 84 mg/dL (60-115)
[2022-12-14] MEDS: levETIRAcetam in NaCl (iso-os) 500 MG/100 ML PIGGYBACK 400 MG IV (09:23)
[2022-12-14] MEDS: Aspirin 81 MG TAB.CHEW PO (09:24)
[2022-12-14] MEDS: OLANZapine 5 MG TABLET PO (09:24)
[2022-12-14] MEDS: lisinopriL 5 MG TABLET PO (09:24)
[2022-12-14 11:26] VITALS: BP 120/57; PULSE 64; RESP 20; TEMP 36.6; O2SAT 96
[2022-12-14 11:34] LABS: Glucose, Whole Blood 135 mg/dL (60-115)
--- NOTE | 2022-12-14 13:35 | MHC.CM.PN ---
Patient has been medically cleared for dc to LTC today. Patient will return to LTC @ [facility] today at 4PM, via [facility].CM spoke with Patient's Guardian/Atul @[phone] and informed her of the dc plan. Last IMM addressed yesterday.
--- NOTE | 2022-12-14 14:16 | PM.DS ---
DS: Providers Provider Date of Service: 12/14/22 Date of admission: 12/13/22 10:45 Date of discharge: 12/14/22 Primary care physician: RAKESH COLLINS Consults: 12/12/22 13:27 Consult to Neurology Routine Consulting Provider: [facility] Reason for consultation: New onset seizure DS: Diagnosis Discharge Diagnosis (1) New onset seizure: Status: Acute (2) Diabetes type 2, controlled: Status: Acute (3) Hypertension: Status: Acute DS: Summary Hospital Course Hospital Course: 67-year-old male with a PMH significant for?unspecified dementia, schizophrenia, HTN, [id number] diabetes type 2, and BPH who presents to the ED from SNF for evaluation of new onset seizure.? Patient is a resident of [facility]. Patient was being attended to by a FUR REMODELER when he started shaking, became unresponsive, and was incontinent of urine. FUR REMODELER lowered him to the floor and noted him to be altered when he awoke.? Patient does not have a known history of seizures. Has baseline dementia but ambulates on his own and capable of following basic commands at baseline. Patient received 4 mg Versed by EMS. In the ED patient was hypothermic at 95.8 and tachypnic up to 102.? Patient was placed in a warming blanket and given IVF. Labs were significant for WBC 4.4, H&H 12.1/36.5, lactic acid 4.2.? Electrolytes normal.? Renal function baseline.? Hepatic function baseline.? UA negative for UTI.? CXR negative.? CT of head negative for acute intracranial pathology but showed chronic white matter small-vessel ischemic changes. EKG demonstrated sinus rhythm with PVCs and no evidence of ST elevations or depressions. Pt was treated with IVF and loaded with Keppra. Pt will be admitted to the hospital under observation on telemetry for further evaluation and treatment of new onset seizure. Hospital Course Patient admitted to telemetry and seen in consultation by Neurology. Neurology recommended adding Depakote 500 mg p.o. b.i.d. and following levels titrating to therapeutic dosing. EEG was done and is not red at the time of this dictation however neurology is comfortable with patient returning to [facility]. At this time he is medically acceptable for same Time Spent with Patient Time attestation: Total time managing care of this patient today ____ minutes. Discharge coordination time: Greater than 30 minutes Quality: Safe Use of Opioids Does Pt have an Active Cancer Diagnosis on the Problem List?: No Quality: Stroke Does the patient have a stroke diagnosis?: No Physical Exam Vital Signs: Vital Signs: Last Vital Signs Temp 97.8 F 12/14/22 11:26 Pulse 64 12/14/22 11:26 Resp 20 12/14/22 11:26 BP 120/57 L 12/14/22 11:26 Pulse Ox 96 12/14/22 11:26 O2 Del Method Room Air 12/14/22 11:26 BMI result Body Mass Index 19.6 Const: Other: Awake alert no acute distress Resp: Other: Clear to auscultation bilaterally no rales rhonchi or wheezes Cardio: Other: No S4; positive S1-S2; no S3 murmurs rubs or gallops GI: Other: Soft nontender nondistended normoactive bowel sounds Extrem: Other: No edema bilaterally DS: Data Data Completed and Pending Labs on day of discharge: Laboratory Results - last 24 hr 12/13/22 12/13/22 12/14/22 16:00 19:09 06:39 WBC 5.5 RBC 3.72 L Hgb 11.8 L Hct 36.0 L MCV 96.8 MCH 31.7 MCHC 32.8 RDW 13.3 Plt Count 355 MPV 9.5 Immature Gran % (Auto) 0.2 Neut % (Auto) 49.3 Lymph % (Auto) 38.2 [place] % (Auto) 9.7 Eos % (Auto) 1.5 Baso % (Auto) 1.1 Lymph # (Auto) 2.1 [place] # (Auto) 0.5 Eos # (Auto) 0.1 Baso # (Auto) 0.1 Abs Immat Gran (auto) 0.01 Absolute Neuts (auto) 2.7 Absolute Nucleated RBC 0.000 Nucleated RBC % (auto) 0.0 Sodium Potassium Chloride Carbon Dioxide Anion Gap BUN Creatinine Estim Creat Clear Calc Estimated GFR POC Glucose 86 130 H Fasting Glucose Calcium Total Bilirubin AST ALT Alkaline Phosphatase Total Protein Albumin 12/14/22 12/14/22 12/14/22 06:39 07:08 07:43 WBC RBC Hgb Hct MCV MCH MCHC RDW Plt Count MPV Immature Gran % (Auto) Neut % (Auto) Lymph % (Auto) [place] % (Auto) Eos % (Auto) Baso % (Auto) Lymph # (Auto) [place] # (Auto) Eos # (Auto) Baso # (Auto) Abs Immat Gran (auto) Absolute Neuts (auto) Absolute Nucleated RBC Nucleated RBC % (auto) Sodium 139 Potassium 4.6 Chloride 108 Carbon Dioxide 24 Anion Gap 12 BUN 11 Creatinine 0.70 Estim Creat Clear Calc 77.3 Estimated GFR > 60 POC Glucose 84 73 Fasting Glucose 70 Calcium 8.7 Total Bilirubin 0.3 AST 16 ALT 9 Alkaline Phosphatase 62 Total Protein 6.3 L Albumin 3.2 L 12/14/22 11:30 WBC RBC Hgb Hct MCV MCH MCHC RDW Plt Count MPV Immature Gran % (Auto) Neut % (Auto) Lymph % (Auto) [place] % (Auto) Eos % (Auto) Baso % (Auto) Lymph # (Auto) [place] # (Auto) Eos # (Auto) Baso # (Auto) Abs Immat Gran (auto) Absolute Neuts (auto) Absolute Nucleated RBC Nucleated RBC % (auto) Sodium Potassium Chloride Carbon Dioxide Anion Gap BUN Creatinine Estim Creat Clear Calc Estimated GFR POC Glucose 135 H Fasting Glucose Calcium Total Bilirubin AST ALT Alkaline Phosphatase Total Protein Albumin Preliminary micro results at discharge 12/12/22 09:57 Blood Culture - Preliminary Blood - Venous No growth after 48 hours. 12/12/22 11:21 Blood Culture - Preliminary Blood - Venous Prelim: GPC Gram Stain only Discharge Plan Discharge Anticipated Discharge Date/Time: 12/14/22 14:09 Patient Disposition: Xfer SNF Discharge Diagnosis: New onset seizures Referrals: [facility] [Outside] - 1 Week RAKESH COLLINS [Primary Care Provider] - 1 Week Discharge Medications: New divalproex 500 mg Tablet,Delayed Release (Dr/Ec) 500 mg PO BID Qty: 60 0RF Continued quetiapine 25 mg Tablet 25 mg PO BEDTIME olanzapine 5 mg Tablet 5 mg PO BID lisinopril 5 mg Tablet 5 mg PO DAILY metformin 500 mg Tablet Extended Release 24 Hr 500 mg PO DAILY acetaminophen 325 mg Tablet 650 mg PO Q6H PRN (Reason: Fever Or Pain) acetaminophen 650 mg Suppository 650 mg [place] Q6H PRN (Reason: Fever Or Pain) melatonin 3 mg Tablet 6 mg PO BEDTIME PRN (Reason: Sleep) magnesium hydroxide [Milk of Magnesia] 400 mg/5 mL Suspension 30 ml PO DAILY PRN (Reason: IF NO BM IN 3 DAYS) bisacodyl 10 mg Suppository 10 mg [place] DAILY PRN (Reason: Constipation) Rx Instructions: IF MILK OF MAGNESIA INEFFECTIVE Fleet Enema 19-7 gram/118 mL Enema 118 ml [place] DAILY PRN (Reason: Constipation) Rx Instructions: IF BISACODYL SUPPOSITORY INEFFECTIVE aspirin 81 mg Tablet,Chewable 81 mg PO DAILY simethicone 80 mg Tablet,Chewable 80 mg PO Q8H PRN (Reason: Gastric Reflux) cholecalciferol (vitamin D3) 1,250 mcg (50,000 unit) Capsule 1,250 mcg PO QMONTH Discharge Orders: Discharge Order (Routine); Ordered 12/14/22 Ordered By: Danny Kelley Diet: Advance to usual diet Activity on Discharge: As tolerated Stand Alone Forms: Patient Portal Discharge page Care Plan Goals: Resume all pre-hospital medications Health Concerns: Add Depakote 500 mg twice daily to regimen Plan of Treatment: Titrate Depakote as indicated by levels. Assessment: See discharge summary
[2022-12-14] MEDS: vancomycin HCL 750 MG in 0.9 % Sodium Chloride 250 ML 265 MG IV (14:48)
[2022-12-14] MEDS: Enoxaparin Sodium 40 MG/0.4 ML SYRINGE SUBCUT (14:49)
[2022-12-14 15:24] VITALS: BP 114/56; PULSE 70; RESP 17; TEMP 36.7; O2SAT 95
[2022-12-14 15:32] VITALS: BP 107/49; PULSE 69; RESP 20; TEMP 36.6; O2SAT 100
--- NOTE | 2022-12-14 15:42 | PC.NURSE ---
Hand off report given to RN line department supervisor Jon @ [facility].
== END 2022-12-14 16:59 | disposition intermediate care facility (04) | DRG 101 ==
LOC: HO.ED 09:48 → HO.EDOVER 13:33 → HO.IMC 12-13 07:47
PROVIDERS: Internal Medicine; Nurse Practitioner Family; Admitting Provider Student in an Organized Health Care Education/Training Program; Emergency Provider Student in an Organized Health Care Education/Training Program; PCP Emergency Medicine; Visit Provider Hospitalist
DX: G40.909 Epilepsy, unspecified, not intractable, without status epilepticus (principal); E87.20 Acidosis, unspecified; E11.9 Type 2 diabetes mellitus without complications; R68.0 Hypothermia, not associated with low environmental temperature; N40.0 Benign prostatic hyperplasia without lower urinary tract symptoms; F03.90 Unspecified dementia, unspecified severity, without behavioral disturbance, psychotic disturbance, mood disturbance, and anxiety; F39 Unspecified mood [affective] disorder; I10 Essential (primary) hypertension; Z20.822 Contact with and (suspected) exposure to COVID-19; Z79.82 Long term (current) use of aspirin; Z79.84 Long term (current) use of oral hypoglycemic drugs; Z79.899 Other long term (current) drug therapy
CPT/HCPCS: 36415; 70450; 71045; 80048; 80053; 80076; 80307; 81003; 82550; 82947; 83605; 83735; 84484; 85025; 85610; 87040; 87147; 87205; 87635; 93005; 95816; 99222; 99285; J1650; J1953; J3370; J3371

== ENCOUNTER → 2023-02-15 13:53 | Outpatient (BNVA) | payer MEDICARE, MEDICAID, SELFPAY | PROVIDERS: PCP Emergency Medicine; Visit Provider Internal Medicine | DX: R63.4 Abnormal weight loss (principal); D64.9 Anemia, unspecified | CPT/HCPCS: 99202 ==

== ENCOUNTER 2023-02-27 11:27 | Outpatient (REF) | payer MEDICARE, MEDICAID, SELFPAY | END 2023-02-27 11:28 | disposition home or self-care (01) | LOC: HO.CT 11:27 | PROVIDERS: PCP Emergency Medicine; Referring Provider Internal Medicine; Visit Provider Emergency Medicine | DX: Z13.89 Encounter for screening for other disorder (principal) ==

== ENCOUNTER 2023-03-08 12:39 | Outpatient (AMB) | payer MEDICARE, MEDICAID, SELFPAY ==
--- NOTE | 2023-03-08 12:42 | A.OFFVIS_ITS ---
Intake Vital Signs 03/08/23 12:45 Height 5 ft Weight 112 lb BMI 21.9 BP 113/55 L Blood Pressure Location Lt brachial Position Sitting Pulse 66 Intake Visit Reasons: 3 week follow up Intake Note: Juan Carlos presents in the office as a 3 week follow up. CC: No concerns today Scaffolding Helper Required: No Allergies No Known Allergies Allergy (Verified 03/08/23 12:47) HPI HPI Comments History of Present Illness Details 67 y.o M with PMH of HTN, schizophrenia, T2DM, resident at [facility] who presents for follow up for unintentional weight loss. 02/15/23: History was obtained primarily from ammunition storekeeper Le over the phone due to pt's medical conditions and limited communication. Pt has been referred to our office for failure to thrive x 2 months. learning and development manager Le reports that pt has had quite a rapid decline in his health condition over the past few months. He used to be up and about all day and would frequently wander due to his dementia however lately has been sleeping all day and has be woken up to be fed. Previously used to feed himself but now needs help with eating. Appetite does not seem affected however has been losing weight, almost 20 lbs over this duration. Pt is incontinent of bladder and bowel, no change noted by staff. He has not been noted to report any abd pain, nausea, blood in stool. Was admitted to [facility] in December for seizures which was deemed to part of his psychiatric illness. Did not have any contrasted head imaging at that time. Started on anti-epileptic, otherwise no new meds in the last 6 months. No hx of abd surgeries. Unknown hx of colonoscopy. Pt does not have any known next of kin, and a legal guardian helps with medical decision making and consents. Recent labs: 12/31/22 ferritin 535 iron 107 folate 7.6 B12 506 WBC 4.6 H/H 12.4/38.4 MCV 98.7 Plt 272 Na 142 K 4.6 BUN 19 Cr 0.79 01/29 AST 27 ALT 34 ALP 55 Bilirubin 0.2 03/08/23: Comes in with his aide. Pt with limited communication due to medical condition. Collateral hx was obtained from the unit RN Hanna over the phone. Pt did not come in with documentation regarding recent labs so those were also communicated to me over the phone by his RN. Unfortunately, scans still pending as guardian signatures were required for contrast administration and they were not able to get in touch with him. Rescheduling pending. 02/20: Ig Vit D: 30 HIV: neg HBsAg: neg HBsAb: neg HBcAB: neg HAV IgG: pos HCV Ab: not done TTg IgA: neg Total IgA: not done TSPOT: not done CT scans: pending. [facility] Medical History Diabetes type 2, controlled Epileptic seizure Hypertension Social History Household Members: Unknown / Unable to assess Housing: Alf Housing Other:: mission care Unable to assess alcohol history related to: Unknown Patient Tobacco Use Status: Tobacco use Unknown service: No Current occupational status: disabled Physical Exam Vital Signs: Last Vital Signs Pulse 66 03/08/23 12:45 BP 113/55 L 03/08/23 12:45 BMI result Body Mass Index 21.9 Gen appear: chronically ill appearing HEENT: nonicteric CVS: S1 S2 Chest: CTA Abd: soft, nondistended, nontender NEuro: seated in wheelchair, awake, Ox1 Assessment & Plan Assessment & Plan (1) Unintentional weight loss: Code(s): R63.4 - Abnormal weight loss (2) Anemia: Code(s): D64.9 - Anemia, unspecified Plan As previously mentioned, anemia is NON iron deficiency and less likely to be due to occult GI losses. Waiting on imaging to further guide his evaluation and whether endoscopy is indicated. Recommendations: - TSPOT and HCV Ab pending - Check comprehensive metabolic panel - Please also obtain urinalysis - CT chest/abd/pel pending as above Reviewed with Sherrie to kindly call office when above testing completed for prompt follow up. mechanical engineering draftsperson: Le [phone] 3rd floor ammunition storekeeper [phone] Fax number: [phone] (Attn: Le) Coding Level of Care Code Est Pt Level 4 (77475) Diagnoses Unintentional weight loss R63.4 Anemia D64.9
[2023-03-08 12:45] VITALS: BP 113/55; PULSE 66; BMI 21.9
== END 2023-03-08 13:32 | disposition home or self-care (01) ==
PROVIDERS: PCP Emergency Medicine; Visit Provider Internal Medicine
DX: R63.4 Abnormal weight loss (principal); D64.9 Anemia, unspecified
CPT/HCPCS: 99214

== ENCOUNTER → 2023-03-08 12:39 | Outpatient (BNVA) | payer MEDICARE, MEDICAID, SELFPAY | PROVIDERS: PCP Emergency Medicine; Visit Provider Internal Medicine | DX: R63.4 Abnormal weight loss (principal); R15.9 Full incontinence of feces; R32 Unspecified urinary incontinence; D64.9 Anemia, unspecified | CPT/HCPCS: 99212 ==